=== PATIENT | female | born 1935 | race Caucasian/White ===

== ENCOUNTER 2022-04-25 08:58 | Inpatient (IN) | payer MEDICARE, MEDICAID ==
[~2022-04-25] VITALS: Ht 160 cm; Wt 66.3 kg
[2022-04-25] MEDS ORDERED: IV NS 0.9% 1,000 ML BAG IV ONE (09:30)
--- NOTE | 2022-04-25 09:30 | NUR ---
established iv line 20 g left forearm , infusing well
--- NOTE | 2022-04-25 09:35 | NUR ---
blood sample obtained sent to lab
[2022-04-25 10:06] LABS: BASOPHILS % (AUTO) 0.4 % (0.0-2.0); CALCIUM, SERUM 9.2 mg/dL (8.5-10.1); CARBON DIOXIDE 20 mmol/L (21-32); CHLORIDE 104 mmol/L (98-107); CREATININE 2.5 mg/dL (0.6-1.3); EOSINOPHILS % (AUTO) 2.8 % (0.0-6.0); GLUCOSE 100 mg/dL (74-106); HEMATOCRIT 41 % (33-45); HEMOGLOBIN 13.1 g/dL (11.5-14.8); LYMPHOCYTES # (AUTO) 2.5 K/uL (0.8-4.8); LYMPHOCYTES % (AUTO) 35.1 % (20.0-44.0); MEAN CORPUSCULAR HGB CONC 32 g/dl (31.0-36.0); MEAN CORPUSCULAR VOLUME 89 fL (82-100); MONOCYTES # (AUTO) 0.7 K/uL (0.1-1.30); MONOCYTES % (AUTO) 9.4 % (2.0-12.0); NEUTROPHILS # (AUTO) 3.7 K/uL (1.8-8.9); NEUTROPHILS % (AUTO) 52.3 % (43.0-81.0); PLATELET COUNT (AUTO) 303 K/uL (150-450); POTASSIUM 4.6 mmol/L (3.5-5.1); RED BLOOD CELL COUNT(AUTO) 4.55 MIL/uL (4.0-5.2); SODIUM SERUM 134 mmol/L (136-145); UREA NITROGEN, BLOOD 56 mg/dL (7-18); WHITE BLOOD COUNT (AUTO) 7.1 K/uL (4.3-11.0)
[2022-04-25 10:12] LABS: ALANINE AMINOTRANSFERASE 8 U/L (12-78); ALBUMIN 3.1 g/dL (3.4-5.0); ALKALINE PHOSPHATASE 168 U/L (46-116); ASPARTATE AMINOTRANSFERASE 17 U/L (15-37); BILIRUBIN,DIRECT 0.1 mg/dL (0.0-0.2); BILIRUBIN,TOTAL 0.2 mg/dL (0.2-1.0)
--- NOTE | 2022-04-25 10:22 | NUR ---
covid swab taken
--- NOTE | 2022-04-25 11:02 | NUR ---
MOVE SHEET SUBMITTED.
--- NOTE | 2022-04-25 11:09 | NUR ---
RICARDO SON-IN-LAW [phone] SARA IS DAUGHTER.
[2022-04-25 11:20] LABS: BILIRUBIN,URINE NEGATIVE (NEGATIVE); COLOR,URINE YELLOW (YELLOW); LEUKOCYTE ESTERASE ,URINE NEGATIVE (NEGATIVE); NITRITE, URINE NEGATIVE (NEGATIVE); PH,URINE 5.5 (5.0-8.0); PROTEIN,URINE NEGATIVE (NEGATIVE); UGLUCOSE NEGATIVE (NEGATIVE); UROBILINOGEN,URINE 0.2 EU/dL (0.2)
[2022-04-25 11:45] LABS: BACTERIA,URINE Many /HPF (None Seen); SQUAMOUS EPITHELIAL CELL,UR Few /HPF (None Seen)
--- NOTE | 2022-04-25 11:49 | NUR ---
GOT BED 313-2 ADMITTING NOTIFIED.
[2022-04-25] MEDS ORDERED: DIPH1TAB28 PO (12:03)
[2022-04-25] MEDS ORDERED: LORA-258 PO (12:03)
[2022-04-25] MEDS ORDERED: GABA300C PO (12:03)
[2022-04-25] MEDS ORDERED: METF500T3 PO (12:03)
[2022-04-25] MEDS ORDERED: AMYL1CAP58 PO (12:03)
[2022-04-25] MEDS ORDERED: OLME1TAB40 PO (12:03)
[2022-04-25] MEDS ORDERED: BIMA2.5D5 EACHEYE (12:03)
[2022-04-25] MEDS ORDERED: AMIO200T5 PO (12:03)
[2022-04-25] MEDS ORDERED: NITR0.4T48 SL (12:03)
[2022-04-25] MEDS ORDERED: GLIP10TA11 PO (12:03)
[2022-04-25] MEDS ORDERED: NAPR1TAB38 PO (12:03)
[2022-04-25] MEDS ORDERED: FENO120T PO (12:03)
[2022-04-25] MEDS ORDERED: CHOL100043 PO (12:03)
[2022-04-25] MEDS ORDERED: AZIL80TA PO (12:03)
[2022-04-25] MEDS ORDERED: EMPA25TA PO (12:03)
[2022-04-25] MEDS ORDERED: INSU3INS9 SQ (12:03)
[2022-04-25] MEDS ORDERED: APIX2.5T PO (12:03)
[2022-04-25] MEDS ORDERED: CLOP75TA15 PO (12:03)
[2022-04-25] MEDS ORDERED: CLON0.1T PO (12:03)
[2022-04-25] MEDS ORDERED: MAGN400T26 PO (12:03)
[2022-04-25] MEDS ORDERED: ISOS60TA72 PO (12:03)
[2022-04-25] MEDS ORDERED: ATOR10TA PO (12:03)
[2022-04-25] MEDS ORDERED: FLUO120C4 TD (12:03)
[2022-04-25] MEDS ORDERED: QUET25TA PO (12:03)
[2022-04-25] MEDS ORDERED: ESCI10TA PO (12:03)
[2022-04-25] MEDS ORDERED: CLOT15CR27 TD (12:03)
[2022-04-25] MEDS ORDERED: ASPI-1420 PO (12:03)
[2022-04-25] MEDS ORDERED: DIME50TA35 PO (12:03)
[2022-04-25] MEDS ORDERED: ZOLP10TA2 PO (12:03)
[2022-04-25] MEDS ORDERED: FAMO40TA7 PO (12:03)
[2022-04-25] MEDS ORDERED: NEBI10TA2 PO (12:03)
[2022-04-25] MEDS ORDERED: FURO40TA5 PO (12:03)
--- NOTE | 2022-04-25 12:10 | NUR ---
report given to rosalinda MERRITT
--- NOTE | 2022-04-25 12:17 | NUR ---
moved patient to assigned inpatient room safely per acls protocol
--- NOTE | 2022-04-25 13:00 | NUR ---
RN NOTE PATIENT WAS TRANSFERRED FROM ER VIA GURNEY WITH NO SIGNED OF DISTRESS. PATIENT WAS ORIENTED TO ROOM SET UP AND EDUCATED ON THE USED OF CALL LIGHT. V/S TAKEN STABLE AND RECORDED. SKIN ASSESSMENT DONE AND PICTURE TAKEN. BELONGING LIST DONE. PATIENT AWAKE IN BED RESTING, A/O X 4, NO S/S OF PAIN NOTED AT THIS TIME. ON ROOM AIR, NO SHORTNESS OF BREATH, NO DISTRESS NOTED. IV ACCESS LFA #20G, INTACT, PATENT AND FLUSHING WELL. 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 FALL AND SAFETY MEASURES IN PLACE, BED ALARM ON, BED IN LOW AND LOCK POSITION, CALL LIGHT AND TABLE WITHIN EASY REACH, SIDE RAILS UP X2. WILL CONTINUE TO MONITOR.
[2022-04-25] MEDS ORDERED: ONDANSETRON HCL/PF 4 MG/2 ML VIAL IVP PRN (14:30)
[2022-04-25] MEDS ORDERED: ACETAMINOPHEN 325 MG TABLET PO PRN (14:30)
[2022-04-25] MEDS ORDERED: Z GUARD REMEDY 4 OZ OINT TP PRN (14:30)
[2022-04-25 14:31] VITALS: BP 123/77
[2022-04-25] MEDS: METRONIDAZOLE 500 MG TABLET PO SCH ×2 (14:46→21:14)
[2022-04-25] MEDS: IV NS 0.9% 1,000 ML IV PRN (14:47)
[2022-04-25] MEDS ORDERED: DEXTROSE 50%-WATER 50 ML DISP.SYRIN IV PRN (15:30)
[2022-04-25] MEDS ORDERED: LORAZEPAM 0.5 MG TABLET PO PRN (15:30)
[2022-04-25] MEDS: CEFTRIAXONE 1 G in IV D5W 50 ML IV SCH (16:01)
[2022-04-25] MEDS: ESCITALOPRAM OXALATE (10 MG) 10 MG TABLET PO SCH (17:55)
[2022-04-25] MEDS: QUETIAPINE FUMARATE 25 MG TABLET PO SCH (17:56)
[2022-04-25] MEDS: GABAPENTIN 300 MG CAPSULE PO SCH (17:56)
[2022-04-25] MEDS: APIXABAN 2.5 MG TABLET PO SCH (17:57)
[2022-04-25] MEDS: INSULIN REGULAR, HUMAN 100 UNIT/ML 3 ML VIAL SQ PRN ×2 (17:58→22:05)
[2022-04-25] MEDS: BLOOD SUGAR DIAGNOSTIC 1 EACH STRIP IN SCH ×2 (17:59→22:04)
--- NOTE | 2022-04-25 18:36 | NUR ---
RN NOTE PHARMACY REQUESTED TO PLEASE INFORM PATIENT WE DO NOT HAVE THE FOLLOWING MEDICATIONS TO PLEASE PROVIDE MEDICATIONS FROM HOME IF POSSIBLE: EDARBI, FENOFIBRATE, LUMIGAN AND CREON. PATIENT WAS INFORMED.
--- NOTE | 2022-04-25 18:55 | NUR ---
RN CLOSING NOTE PATIENT AWAKE IN BED RESTING, A/O X 4, NO S/S OF PAIN NOTED AT THIS TIME. ON ROOM AIR, NO SHORTNESS OF BREATH, NO DISTRESS NOTED. IV ACCESS LFA #20G, INTACT, PATENT AND FLUSHING WELL. 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 SCHEDULE MEDICATIONS ADMINISTERED. ALL NEEDS ATTENDED AND ANTICIPATED. FALL AND SAFETY MEASURES IN PLACE, BED ALARM ON, BED IN LOW AND LOCK POSITION, CALL LIGHT AND TABLE WITHIN EASY REACH, SIDE RAILS UP X2. WILL ENDORSE TO MANAGER GOLF NURSE.
--- NOTE | 2022-04-25 19:20 | NUR ---
curtis rn opening note received patient in bed, a/ox4. Assisted in the bedside commode at this time, very weak. no s/s of apparent distress in room air, breathing even and unlabored. denies pain at this time. reading AV pacing in the tele monitor 80 bpm. LFA #20g running NS@75mls/hr. call light within reach-- reoriented and encouraged with the use of call light. safety put in place. will continue with patient's plan of care. Addendum: 04/25/22 at 2007 by SILVANA FAULKNER RN curtis rn opening note received patient in bed, a/ox4. Assisted in the bedside commode at this time, very weak. no s/s of apparent distress in room air, breathing even and unlabored. denies pain at this time. reading AV pacing in the tele monitor 80 bpm. LFA #20g running NS@75mls/hr. call light within reach-- reoriented and encouraged with the use of call light. safety put in place. will continue with patient's plan of care. patient denies having BM today.
[2022-04-25 19:47] VITALS: BP 123/77
[2022-04-25 20:00] VITALS: BP 122/55
[2022-04-25] MEDS: METOPROLOL TARTRATE 50 MG TABLET PO SCH (21:00)
--- NOTE | 2022-04-25 21:00 | NUR ---
curtis rn note- non-admin scheduled 2100 Lopressor held. BP 109/71 hr-81. will monitor.
--- NOTE | 2022-04-25 21:15 | NUR ---
noc rn note Patient had watery BM, the first for the day. Sent specimen to lab at this time.
[2022-04-25] MEDS: INSULIN GLARGINE, 100 UNIT/ML CARTRIDGE SQ SCH (22:00)
[2022-04-25] MEDS: BIMATOPROST 2.5 ML DROPS OP SCH (22:00)
--- NOTE | 2022-04-25 22:05 | NUR ---
noc rn note blood sugar tonight is 96. Lantus held. per patient "that's because I don't eat" and per her "I am not hungry". Encouraged to ask for snacks if she wanted to. No coverage needed as well. will monitor.
--- NOTE | 2022-04-25 23:02 | NUR ---
noc rn note 2nd stool specimen sent to lab at this time. Stool still watery.
[2022-04-26] VITALS: BP 102/57
--- NOTE | 2022-04-26 00:51 | NUR ---
noc rn note 3rd stool specimen for C.diff assay collected and sent to lab at this time.
[2022-04-26 04:00] VITALS: BP 108/63
[2022-04-26] MEDS: METRONIDAZOLE 500 MG TABLET PO SCH ×3 (05:04→21:11)
[2022-04-26] MEDS: IV NS 0.9% 1,000 ML IV PRN ×2 (06:41→19:09)
[2022-04-26] MEDS: BLOOD SUGAR DIAGNOSTIC 1 EACH STRIP IN SCH ×4 (06:50→21:08)
[2022-04-26] MEDS: INSULIN REGULAR, HUMAN 100 UNIT/ML 3 ML VIAL SQ PRN ×4 (06:51→21:08)
--- NOTE | 2022-04-26 06:51 | NUR ---
noc rn note blood sugar 104 this morning. no coverage needed.
[2022-04-26 07:04] LABS: BASOPHILS % (AUTO) 0.3 % (0.0-2.0); EOSINOPHILS % (AUTO) 1.5 % (0.0-6.0); HEMATOCRIT 39 % (33-45); HEMOGLOBIN 12.4 g/dL (11.5-14.8); LYMPHOCYTES # (AUTO) 1.6 K/uL (0.8-4.8); LYMPHOCYTES % (AUTO) 21.2 % (20.0-44.0); MEAN CORPUSCULAR HGB CONC 32 g/dl (31.0-36.0); MEAN CORPUSCULAR VOLUME 88 fL (82-100); MONOCYTES # (AUTO) 0.4 K/uL (0.1-1.30); MONOCYTES % (AUTO) 5.9 % (2.0-12.0); NEUTROPHILS # (AUTO) 5.3 K/uL (1.8-8.9); NEUTROPHILS % (AUTO) 71.1 % (43.0-81.0); PLATELET COUNT (AUTO) 266 K/uL (150-450); RED BLOOD CELL COUNT(AUTO) 4.37 MIL/uL (4.0-5.2); WHITE BLOOD COUNT (AUTO) 7.4 K/uL (4.3-11.0)
--- NOTE | 2022-04-26 07:08 | NUR ---
noc rn closing note patient comfortably sleeping in bed at this time. no s/s of apparent distress in room air. denies pain at this time. reading AV pacing with 80bpm on the tele monitor throughout shift. IV fluid NS running at 75mls/hr this time. all needs attended. all scheduled medications administered. safety in place. will endorse to morning shift rn for continuity of patient care.
--- NOTE | 2022-04-26 07:28 | NUR ---
WOUND CARE CONSULT: PT PRESENTS AMBULATORY AND CONTINENT WITH SLIGHT REDNESS TO PERIANAL AREA PRESENT ON ADMISSION. RECOMMENDATIONS MADE FOR SKIN PROTECTION. DISCUSSED WITH NURSING STAFF. MD IN AGREEMENT WITH PLAN OF CARE.
--- NOTE | 2022-04-26 07:40 | NUR ---
COUNTY DIRECTOR WELFARE OPENING NOTE RECEIVED PT AWAKE IN BED. STABLE ON ROOM AIR. A/O X 4. VERBALLY RESPONSIVE . ON TELE MONITOR SHOWING AV PACING 80 . NO SOB OR DISTRESS NOTED NO C/ O OF PAIN AND DISCOMFORT . IV ACCESS NOTED LFA # 20G WITH NS @75 ML /HR RUNNING WELL . SAFETY PRECAUTIONS MAINTAINED: BED LOCKED AND IN LOWEST POSITION, SIDE RAILS UP X3, BED ALARM ON, CALL LIGHT AND TRAY TABLE WITHIN REACH. WILL MONITOR FOR ANY CHANGES
[2022-04-26 07:55] LABS: CALCIUM, SERUM 8.7 mg/dL (8.5-10.1); CARBON DIOXIDE 20 mmol/L (21-32); CHLORIDE 111 mmol/L (98-107); CREATININE 2.1 mg/dL (0.6-1.3); GLUCOSE 118 mg/dL (74-106); MAGNESIUM 2.1 mg/dL (1.8-2.4); PHOSPHORUS 4.2 mg/dL (2.5-4.9); POTASSIUM 4.5 mmol/L (3.5-5.1); SODIUM SERUM 139 mmol/L (136-145); UREA NITROGEN, BLOOD 44 mg/dL (7-18)
[2022-04-26] MEDS: PANTOPRAZOLE 40 MG TABLET.DR PO SCH (07:59)
[2022-04-26 08:00] VITALS: BP 107/93
[2022-04-26] MEDS ORDERED: FENOFIBRATE 120 MG PO SCH (09:00)
[2022-04-26] MEDS: CHOLECALCIFEROL 1,000 UNIT TABLET (VIT D3) PO SCH (09:08)
[2022-04-26] MEDS: ASPIRIN EC 81 MG TABLET.DR PO SCH (09:09)
[2022-04-26] MEDS: ATORVASTATIN 10 MG TABLET PO SCH (09:09)
[2022-04-26] MEDS: GABAPENTIN 300 MG CAPSULE PO SCH ×3 (09:09→16:21)
[2022-04-26] MEDS: METOPROLOL TARTRATE 50 MG TABLET PO SCH ×2 (09:13→21:12)
[2022-04-26] MEDS: AMIODARONE HCL 200 MG TABLET PO SCH (09:13)
[2022-04-26] MEDS: APIXABAN 2.5 MG TABLET PO SCH ×2 (09:14→16:23)
[2022-04-26] MEDS: ISOSORBIDE MONONITRATE (30MG) 30 MG TAB.SR.24H PO SCH (09:14)
[2022-04-26] MEDS: EMPAGLIFLOZIN 25 MG TABLET PO SCH (11:39)
[2022-04-26] MEDS: LIPASE/PROTEASE/AMYLASE 1 EACH CAPSULE.DR PO SCH ×2 (13:04→17:07)
[2022-04-26] MEDS: CEFTRIAXONE 1 G in IV D5W 50 ML IV SCH (15:09)
[2022-04-26 16:00] VITALS: BP 110/50
[2022-04-26] MEDS: QUETIAPINE FUMARATE 25 MG TABLET PO SCH (17:07)
[2022-04-26] MEDS: ESCITALOPRAM OXALATE (10 MG) 10 MG TABLET PO SCH (17:07)
--- NOTE | 2022-04-26 18:31 | NUR ---
[facility] CLOSING NOTE PT AWAKE IN BED. STABLE ON ROOM AIR. A/O X 4. VERBALLY RESPONSIVE . ON TELE MONITOR SHOWING AV PACING 81 . NO SOB OR DISTRESS NOTED NO C/ O OF PAIN AND DISCOMFORT . IV ACCESS NOTED LFA # 20G WITH NS @75 ML /HR RUNNING WELL . ALL MED ORDERED , DIET ADDED WITH RENAL LOW DIET AND BLADDER SCAN DONE AND NO RETENTION NOTED , SAFETY PRECAUTIONS MAINTAINED: BED LOCKED AND IN LOWEST POSITION, SIDE RAILS UP X3, BED ALARM ON, CALL LIGHT AND TRAY TABLE WITHIN REACH. WILL ENDORSED TO NEXT SHIFT
[2022-04-26 20:00] VITALS: BP 117/55
[2022-04-26] MEDS: INSULIN GLARGINE, 100 UNIT/ML CARTRIDGE SQ SCH (21:15)
[2022-04-26] MEDS: BIMATOPROST 2.5 ML DROPS OP SCH (22:00)
[2022-04-26 22:58] VITALS: BP 117/55
[2022-04-27] VITALS: BP 114/66
[2022-04-27 04:00] VITALS: BP 128/68
[2022-04-27 06:02] LABS: BASOPHILS % (AUTO) 0.4 % (0.0-2.0); EOSINOPHILS % (AUTO) 2.6 % (0.0-6.0); HEMATOCRIT 38 % (33-45); HEMOGLOBIN 12.2 g/dL (11.5-14.8); LYMPHOCYTES # (AUTO) 1.9 K/uL (0.8-4.8); LYMPHOCYTES % (AUTO) 30.5 % (20.0-44.0); MEAN CORPUSCULAR HGB CONC 32 g/dl (31.0-36.0); MEAN CORPUSCULAR VOLUME 89 fL (82-100); MONOCYTES # (AUTO) 0.6 K/uL (0.1-1.30); MONOCYTES % (AUTO) 9.3 % (2.0-12.0); NEUTROPHILS # (AUTO) 3.6 K/uL (1.8-8.9); NEUTROPHILS % (AUTO) 57.2 % (43.0-81.0); PLATELET COUNT (AUTO) 259 K/uL (150-450); WHITE BLOOD COUNT (AUTO) 6.2 K/uL (4.3-11.0)
[2022-04-27] MEDS: BLOOD SUGAR DIAGNOSTIC 1 EACH STRIP IN SCH ×2 (06:02→12:15)
[2022-04-27] MEDS: INSULIN REGULAR, HUMAN 100 UNIT/ML 3 ML VIAL SQ PRN ×2 (06:03→12:15)
[2022-04-27] MEDS: METRONIDAZOLE 500 MG TABLET PO SCH ×2 (06:08→12:25)
--- NOTE | 2022-04-27 06:17 | NUR ---
END OF SHIFT SUMMARY REPORT Patient in bed, Alert Oriented x3. AV Pacing in the Tele monitor HR 80. Ambulated to the bathroom, observed no SOB with exertion, Oxygen sat high 90's in RA. Left AC peripheral line intact, IVF infusing. On IV/PO abx Afebrile during the shift. Patient reports still with diarrhea, denies abdomen pain, no c/o N/V. Stool cx pending result. (-) result for Stool C diff test on 04/25/22. Continuous IV fluids for hydration. Will endorse to oncoming RN.
[2022-04-27 06:20] LABS: ALANINE AMINOTRANSFERASE 6 U/L (12-78); ALBUMIN 2.6 g/dL (3.4-5.0); ALKALINE PHOSPHATASE 149 U/L (46-116); ASPARTATE AMINOTRANSFERASE 11 U/L (15-37); BILIRUBIN,TOTAL 0.3 mg/dL (0.2-1.0); CALCIUM, SERUM 8.9 mg/dL (8.5-10.1); CARBON DIOXIDE 20 mmol/L (21-32); CHLORIDE 112 mmol/L (98-107); CREATININE 1.9 mg/dL (0.6-1.3); GLUCOSE 106 mg/dL (74-106); MAGNESIUM 1.9 mg/dL (1.8-2.4); PHOSPHORUS 3.4 mg/dL (2.5-4.9); SODIUM SERUM 140 mmol/L (136-145); UREA NITROGEN, BLOOD 34 mg/dL (7-18)
[2022-04-27] MEDS: PANTOPRAZOLE 40 MG TABLET.DR PO SCH (07:58)
[2022-04-27 08:00] VITALS: BP 134/64
--- NOTE | 2022-04-27 08:01 | NUR ---
FUNDRAISING OFFICER OPENING NOTE RECEIVED PT AWAKE IN BED, AOX3-4, SPEAKS SCOTTISH MOSTLY, UNDERSTANDS [place], STABLE ON ROOM AIR, NO SOB, BREATHING EVEN AND UNLABORED. ON TELEMONITORING SHOWING AV PACING WITH 80 BPM HR. DENIES PAIN OR DISCOMFORT. IV ACCESS NOTED LAC # G#20 WITH NS RUNNING @75 ML /HR, FLUSHING WELL. SAFETY PRECAUTIONS IN PACE: BED LOCKED AND IN LOWEST POSITION, SIDE RAILS UP X2, BED ALARM ON, CALL LIGHT AND TRAY TABLE WITHIN REACH. WILL CONTINUE TO MONITOR.
[2022-04-27] MEDS: LIPASE/PROTEASE/AMYLASE 1 EACH CAPSULE.DR PO SCH ×2 (08:08→12:24)
[2022-04-27] MEDS: ASPIRIN EC 81 MG TABLET.DR PO SCH (08:08)
[2022-04-27] MEDS: GABAPENTIN 300 MG CAPSULE PO SCH ×2 (08:08→12:24)
[2022-04-27] MEDS: ATORVASTATIN 10 MG TABLET PO SCH (08:08)
[2022-04-27] MEDS: CHOLECALCIFEROL 1,000 UNIT TABLET (VIT D3) PO SCH (08:09)
[2022-04-27] MEDS: EMPAGLIFLOZIN 25 MG TABLET PO SCH (08:11)
[2022-04-27] MEDS: AMIODARONE HCL 200 MG TABLET PO SCH (08:34)
[2022-04-27] MEDS: ISOSORBIDE MONONITRATE (30MG) 30 MG TAB.SR.24H PO SCH (08:34)
[2022-04-27] MEDS: METOPROLOL TARTRATE 50 MG TABLET PO SCH (08:35)
[2022-04-27] MEDS: APIXABAN 2.5 MG TABLET PO SCH (08:37)
[2022-04-27] MEDS: IV NS 0.9% 1,000 ML IV PRN (08:47)
[2022-04-27] MEDS ORDERED: LOSARTAN POTASSIUM 50 MG TABLET PO SCH (09:00)
[2022-04-27] MEDS ORDERED: AMOX-430 PO (09:51)
--- NOTE | 2022-04-27 10:07 | NUR ---
RN NOTES - PATIENT REFUSED ABG TEST DESPITE EDUCATION, RT TO CANCEL PROCEDURE AND WILL INFORM DR IBARRA
[2022-04-27 12:00] VITALS: BP 104/51
--- NOTE | 2022-04-27 13:10 | NUR ---
GUNNER'S MATE DISCHARGE NOTE PT DISCHARGED TO HOME IN STABLE CONDITION. PT AOX4, ABLE TO MAKE NEEDS KNOWN. ON ROOM AIR BREATHING WITH NO DIFFICULTY, NOT IN ANY FORM OF RESPIRATORY DISTRESS. LAST TELEMONITORING READING WAS AV PACING WITH HR OF 80 BPM. VITAL SIGNS TAKEN AND RECORDED, STABLE. SKIN INTACT, REFUSED TO TAKE PICTURE OF THE BUTTOCKS, ALL BELONGINGS ACCOUNTED FOR INCLUDING THE MEDS FROM THE PHARMACY. FORM SIGNED. DISCHARGE AND FOLLOW UP INSTRUCTIONS GIVEN TO THE PATIENT. IV ACCESS REMOVED AND PRESSURE DRESSING APPLIED, NO BLEEDING NOTED. PT LEFT THE UNIT AT 1305 VIA WHEELCHAIR ACCOMPANIED BY MELANY GARCIA. PATIENT IS PICKED UP BY SON IN LAW Jb [place]. AND CHARGE NURSE AWARE OF DISCHARGE.
[2022-04-27] MEDS ORDERED: BIMATOPROST 2.5 ML DROPS OP SCH (22:00)
== END 2022-04-27 14:00 | disposition home health service (06) | DRG 391 ==
LOC: ER 09:06 → TELE 11:53
PROVIDERS: ADMIT Nurse Practitioner Family; ATTEND Internal Medicine
DX: A08.4 Viral intestinal infection, unspecified (principal); N17.0 Acute kidney failure with tubular necrosis; E44.1 Mild protein-calorie malnutrition; I13.0 Hypertensive heart and chronic kidney disease with heart failure and stage 1 through stage 4 chronic kidney disease, or unspecified chronic kidney disease; E87.1 Hypo-osmolality and hyponatremia; E86.0 Dehydration; N18.9 Chronic kidney disease, unspecified; E11.22 Type 2 diabetes mellitus with diabetic chronic kidney disease; Z20.822 Contact with and (suspected) exposure to COVID-19; I50.9 Heart failure, unspecified; I25.10 Atherosclerotic heart disease of native coronary artery without angina pectoris; Z95.1 Presence of aortocoronary bypass graft; J44.9 Chronic obstructive pulmonary disease, unspecified; E88.09 Other disorders of plasma-protein metabolism, not elsewhere classified; Z79.01 Long term (current) use of anticoagulants; Z79.84 Long term (current) use of oral hypoglycemic drugs; Z79.82 Long term (current) use of aspirin; Z79.899 Other long term (current) drug therapy; Z95.0 Presence of cardiac pacemaker; I27.20 Pulmonary hypertension, unspecified
CPT/HCPCS: 36415; 71045-TC; 76770-TC; 80048-TC; 80053-TC; 80076-TC; 81001; 82962-TC; 83605-TC; 83735-TC; 84100-TC; 84484-TC; 85025-TC; 85730-TC; 87040-TC; 87081-TC; 87086-TC; 93307-TC; 93970-TC; C9803; G0378; J0696; J1815; J7030; J7060